=== PATIENT | female | born 1985 | race American Indian/Alaskan Native ===

== ENCOUNTER 2017-12-25 00:22 | Inpatient (IN) | payer OTHER ==
[2017-12-25 01:47] VITALS: BMI 29.5
--- NOTE | 2017-12-25 01:53 | OBADHP ---
Datetime: 12/25/2017 01:33 Admit Comment, IP Provider: 32 yo female with an IUP at 39.2 weeks and presented with a Hx of leaking fluid vaginally since 11:30 PM and continuously wetting her underwear but only ocassional contractions. Admits to adequate FM and denies VB or VD. PMHx and PSHx Negative NKDA Meds: PNV Social Hx: Negative x 3 A_P: Term with SROM and not in labor GBS unkinown NST reactive Hx of previous 10 yrs ago and one miscarriage Will admit for anticipated vaginal delivery Aill start on PCN G for GBS prophylaxis Will start on Pitocin for Augmentation of labor Hope for a vaginal delivery Undecided re an Epidural Pelvic Type - PN: Adequate Extremities - PN: Normal Abdomen - PN: Normal Back - PN: Normal Breast - PN: Not Done Lungs - PN: Normal Heart - PN: Normal Thyroid - PN: Normal Neurologic - PN: Normal HEENT - PN: Normal General - PN: Normal Presentation-Admit: Vertex FHR - Baseline A Provider: 140 Amniotic Fluid Color, Provider: Clear Membranes, Provider: Ruptured Contraction Comments Provider: 8 mins Gestation - Est Wks by US: 39.2 Pool Provider: Negative Nitrazine Provider: Positive IP Hx Assessment: Partial PNC records available Vital Signs Provider: Reviewed; Within Normal Limits IP Chief Complaint: Suspected ruptured membranes; evaluation NICHD Variability Prov Fetus A: Moderate 6-25bpm NICHD Accel Fetus A IP Provider: 10X10 FHR Category Provider Fetus A: Category I NICHD Decel Fetus A IP Provider: None Dilatation, Provider: 2 Effacement, Provider: 50 Station, Provider: -3 Genitourinary Exam: Normal DTRs - PN: Normal EGA AdmitDate IP: 39.2 IP Adm Impression: Term, intrauterine ; No Active Labor; Ruptured Membranes IP Admit Plan: Admit to unit; Initiate labor augmentation protocol
[2017-12-25] MEDS ORDERED: Penicillin G 5 Million Unit Vial IVPB ONE ×2 (01:54→02:50)
[2017-12-25] MEDS ORDERED: Lactated Ringer's 1,000 ML IV ONE (01:54)
[2017-12-25] MEDS ORDERED: Lactated Ringer's 1,000 ML IV SCH (02:00)
[2017-12-25] MEDS ORDERED: Oxytocin 30 UNIT 30 UNITS/500 ML BAG IV ONE ×2 (02:03→02:51)
[2017-12-25 02:34] LABS: BASO % 0.6 % (0.0-2.0); EOS # 0.1 K/uL (0.0-0.7); EOS % 0.9 % (0.0-4.0); HEMOGLOBIN 11.3 g/dL (11.0-16.0); LYMPH # 1.3 K/uL (1.0-4.3); LYMPH % 19.2 % (20.0-40.0); MEAN CELL VOLUME 84.3 fL (81.0-99.0); MEAN CORPUSCULAR HGB CONC 33.2 g/dL (33.0-37.0); MEAN PLATELET VOLUME 8.2 fL (7.2-11.7); MONO # 0.8 K/uL (0.0-0.8); MONO % 12.7 % (0.0-10.0); NEUT # 4.4 K/uL (1.8-7.0); NEUT % 66.6 % (50.0-75.0); RBC 4.03 Mil/uL (3.80-5.20); RED CELL DISTRIBUTION WIDTH 14.2 % (11.5-14.5); WHITE BLOOD COUNT 6.6 K/uL (4.8-10.8)
[2017-12-25 02:37] LABS: SQUAMOUS EPITHIAL 3 /hpf (0-5); URINE BILIRUBIN NEGATIVE (NEGATIVE); URINE BLOOD NEGATIVE (NEGATIVE); URINE CLARITY Clear (Clear); URINE COLOR Straw (YELLOW); URINE GLUCOSE (UA) NORMAL (Normal); URINE LEUKOCYTE ESTERASE NEG Leu/uL (Negative); URINE PROTEIN NEGATIVE (NEGATIVE); URINE UROBILINOGEN NORMAL mg/dL (0.2-1.0)
[2017-12-25 02:48] LABS: ALBUMIN 3.6 g/dL (3.5-5.0); ALT/SGPT 16 U/L (9-52); AST/SGOT 17 U/L (14-36); BLOOD UREA NITROGEN 10 mg/dL (7-17); CALCIUM 8.7 mg/dl (8.6-10.4); GFR NON-AFRICAN AMERICAN > 60
[2017-12-25 03:17] LABS: HEPATITIS B SURFACE AG Negative (NEGATIVE)
[2017-12-25] MEDS ORDERED: Fentanyl/Bupivacaine HCl 250 ML EPI ONE (06:37)
--- NOTE | 2017-12-25 07:34 | OBPN ---
Datetime: 12/25/2017 07:02 IP Progress Impression: Normal progression of labor IP Informed Consent Obtain: Vaginal Delivery IP Procedures: Sterile Vag Exam; Sterile Speculum Exam; Epidural Placement IP Progress Plan: Augmentation Membranes, Provider: Ruptured Contraction Comments Provider: Irregular FHR - Baseline A Provider: 150 Gestation - Est Wks by US: 39.2 Presentation-Admit: Vertex IP Progress Note Comment: Pt seen and examined C/O's of very painful contractions and requesting an Epidural VSS tracing reassuring + forebag noted and will attempt AROM after Epidural Pitocin at 6 mU/mins and irregular contractions Hope for a vaginal delivery NICHD Accel Fetus A IP Provider: 10X10 NICHD Variability Prov Fetus A: Moderate 6-25bpm Dilatation, Provider: 2-3 Effacement, Provider: 75 Station, Provider: -3 NICHD Decel Fetus A IP Provider: None Datetime: 12/25/2017 01:33 Pool Provider: Negative Nitrazine Provider: Positive Amniotic Fluid Color, Provider: Clear Vital Signs Provider: Reviewed; Within Normal Limits FHR Category Provider Fetus A: Category I
--- NOTE | 2017-12-25 08:40 | OBPN ---
Datetime: 12/25/2017 08:10 IP Progress Impression Other: Late decelerations IP Procedures: Intrauterine Pressure Catheter; Scalp Electrode; Sterile Vag Exam IP Progress Plan: Continue present management; Augmentation; Anticipate Vaginal Delivery Membranes, Provider: Ruptured Contraction Comments Provider: 3 minutes FHR - Baseline A Provider: 145 Gestation - Est Wks by US: 39w 2d Presentation-Admit: Vertex IP Progress Note Comment: FHR tracing noted for late decel x 3, [place] 60 bpm x 60 seconds with rapid recovery, (+) moderate variability. Lizabethn received in LDR#1, left lateral position; IVF infusing. Pt_itocin at 10 MUnits Cervical eam: as above. IUPC and ISE placed and inserted without difficulty. Tracing monitored - baselin resumed 150 bpm; no recurrence of decelerations noted Assessment: 32 y.o. P1011, 39w 3d, SROM x 9 hours on pitocin. GBS unknown; on penicillin. FHR trac ing has improved. Pitocin maintained at 10 MUnits. D/W patient and FOB will continue to monitor clos tiburcio. If late deceleration recur, adbominal delivery will be entertained. Patient and FOB expressed an understanding. Patient is clincially stble. Plan: 1) Continue present management 20 Anticipate vaginal delviery Vital Signs Provider: Reviewed; Within Normal Limits NICHD Accel Fetus A IP Provider: 15X15 FHR Category Provider Fetus A: Category III NICHD Variability Prov Fetus A: Moderate 6-25bpm Dilatation, Provider: 4 Effacement, Provider: 60 Station, Provider: -3 NICHD Decel Fetus A IP Provider: Late
--- NOTE | 2017-12-25 12:17 | OBPN ---
Datetime: 12/25/2017 12:07 IP Progress Impression: Normal progression of labor IP Procedures: Sterile Vag Exam IP Progress Plan: Continue present management; Anticipate Vaginal Delivery Membranes, Provider: Ruptured Contraction Comments Provider: 2 minutes FHR - Baseline A Provider: 150 Gestation - Est Wks by US: 39w 2d Presentation-Admit: Vertex IP Progress Note Comment: Patietn comfortable Cervical exam: as above. Pitocn at 5 MUnits Assessment: 32 y.o. P1011, 39w 2d, SROM on pitocin, GBS (+) on penicilin; nearing end of Stage 1 o f . Category 1 tracing. Clinically stable. Plan: 1) Continue present management 2) Anticipate vaginal delivery Vital Signs Provider: Reviewed; Within Normal Limits NICHD Accel Fetus A IP Provider: 15X15 FHR Category Provider Fetus A: Category I NICHD Variability Prov Fetus A: Moderate 6-25bpm Dilatation, Provider: 10 Effacement, Provider: 100 Station, Provider: 1 NICHD Decel Fetus A IP Provider: Early
[2017-12-25] MEDS ORDERED: Lidocaine 2% MPF (5 ml) Inj ONE (13:33)
--- NOTE | 2017-12-25 17:21 | OBDS ---
DELIVERY PERSONNEL Nurse Inventory Accountant Certified: N/A Delivery Doctor: Ninfa Dunn MD Anesthesiologist: Dr. Grover Chemical Manager: N/A Resident: NElsi MATERNAL INFORMATION Delivery Anesthesia: Epidural Provider Comments: Patient fully dilated 1350 hours; encouraged to push live male , ROP, tight nuchal cord x 1 - doubly clamped and cut on perineum. Rest of bod y delivered without incident. placed on mother's abdomen. Spontaneous delivery of placenta - grossly intact; 3 vessel cord. Uterine exploration performed; uterus contracted and firm. Straight catheterization performed: 300 mL urine Cervix, vagina, perineum inspected - no lacerations. Hemostasis assured. Mother and bonding, both in stable condition EBL 200 mL Weight 7lb 5oz 's 9/9 LABOR SUMMARY EDC: 12/30/2017 00:00 No. Babies in Womb: 1 Attempted: No Labor Anesthesia: None LABOR INFORMATION Reason for Induction: Not Applicable Reason for Induction Other: N/A Onset of Labor: 12/24/2017 00:30 Complete Dilatation: 12/25/2017 13:50 Other Ripening Agents: N/A Oxytocin: Augmentation Group B Beta Strep: Done, Result Unknown Antibiotics # of Doses: 3 Antibiotics Time of Last Dose: 12/25/2017 @ 14:41 Steroids Given: None Reason Steroids Not Administered: Not Applicable Other Reason Not Administered: N/A MEMBRANES Membranes Rupture Method: Spontaneous Rupture of Membranes: 12/24/2017 23:30 Length of Rupture (hrs): 17.32 Amniotic Fluid Color: Clear Amniotic Fluid Amount: Moderate Amniotic Fluid Odor: Normal STAGES OF LABOR Stage 1 hrs: 37 Stage 1 min: 20 Stage 2 hrs: 2 Stage 2 min: 59 Stage 3 hrs: 0 Stage 3 min: 9 Total Time in Labor hrs: 40 Total Time in Labor min: 28 VAGINAL DELIVERY Initial Vag Sponge Count: 10 Initial Vag Sharps Count: 0 BABY A INFORMATION Infant Delivery Date/Time: 12/25/2017 16:49 Method of Delivery: Vaginal Born in Route : No : N/A Forceps: N/A Vacuum Extraction: N/A Shoulder Dystocia : No SHOULDER DYSTOCIA BABY A Delivery Date/Time: 12/25/2017 16:49 PRESENTATION/POSITION BABY A Presentation: Cephalic Cephalic Presentation: Vertex Vertex Position: Right Occipital Posterior Breech Presentation: N/A PLACENTA INFORMATION BABY A Placenta Delivery Time : 12/25/2017 16:58 Placenta Method of Delivery: Spontaneous Placenta Status: Delivered SCORES BABY A Heart Rate 1 min: >100 bpm Resp Effort 1 min: Good Cry Reflex Irritability 1 min: Cough or Sneeze or Pulls Away Muscle Tone 1 min: Active Motion Color 1 min: Body Point Isabel, Extremities Blue Resuscitation Effort 1 min: Tactile Stimulation SCORE 1 MIN: 9 Heart Rate 5 min: >100 bpm Resp Effort 5 min: Good Cry Reflex Irritability 5 min: Cough or Sneeze or Pulls Away Muscle Tone 5 min: Active Motion Color 5 min: Body Point Isabel, Extremities Blue Resuscitation Effort 5 min: N/A SCORE 5 MIN: 9 INFANT INFORMATION BABY A Gestational Age at Delivery: 39.2 Gestational Status: Term Outcome : Liveborn Condition : Stable Infant Sex: Male IDENTIFICATION/MEDS BABY A ID Band Number: [id number] ID Band Location: Left Leg; Left Arm Sensor Applied: Yes Sensor Number: [id number] Sensor Location : Cord Clamp WEIGHT/LENGTH BABY A Birthweight (gms): 3315 Infant Weight (lb): 7 Weight (oz): 5 Infant Length Inches: 19.75 Length cms: 50.2 CORD INFORMATION BABY A No. Cord Vessels: 3 Nuchal Cord : Around Neck x1, Loose Nuchal Cord Other: N/A True Knot: N/A Cord Blood Taken: Yes Banking/Donate Info: N/A Suction: Mouth; Nose
[2017-12-25] MEDS ORDERED: Oxycodone/Acetaminophen 5/325 mg Tab PO PRN (17:29)
[2017-12-25] MEDS ORDERED: Benzocaine/Menthol 20%-0.5% Topical Spray (60 ml) TOP PRN (17:29)
[2017-12-26 01:39] VITALS: O2SAT 99
[2017-12-26 08:44] LABS: BASO % 0.3 % (0.0-2.0); EOS # 0.1 K/uL (0.0-0.7); EOS % 0.6 % (0.0-4.0); HEMOGLOBIN 9.9 g/dL (11.0-16.0); LYMPH # 1.5 K/uL (1.0-4.3); LYMPH % 11.6 % (20.0-40.0); MEAN CELL VOLUME 84.1 fL (81.0-99.0); MEAN CORPUSCULAR HEMOGLOBIN 27.2 pg (27.0-31.0); MEAN CORPUSCULAR HGB CONC 32.3 g/dL (33.0-37.0); MEAN PLATELET VOLUME 8.2 fL (7.2-11.7); MONO % 7.9 % (0.0-10.0); NEUT # 10.5 K/uL (1.8-7.0); NEUT % 79.6 % (50.0-75.0); RBC 3.64 Mil/uL (3.80-5.20); RED CELL DISTRIBUTION WIDTH 14.2 % (11.5-14.5)
[2017-12-26 08:45] LABS: WHITE BLOOD COUNT 13.2 K/uL (4.8-10.8)
[2017-12-26 09:15] VITALS: RESP 18
[2017-12-26] MEDS: Multiple Vitamins Tab PO SCH (09:55)
--- NOTE | 2017-12-26 13:51 | OBPPN ---
Datetime: 12/26/2017 07:10 PP Pain Prov: Within normal limits PP Nausea Prov: Denies PP Flatus Prov: Yes PP BM Prov: No PP Heart Prov: Normal PP Lungs Prov: Normal PP Abdomen/Uterus Prov: Normal PP Lochia Prov: Normal PP Vulva/Perineum Prov: Normal PP CVA Tenderness Prov: Normal PP Extremities Prov: Normal PP C/S Incision Prov: Not Applicable PP Progress Prov: Normal PP Comments Phys Exam Prov: Gen: patient in bed in NAD Heart: S1, S2, RRR Chest: CTA b/l Abd: soft, +BS, appropriate tender to palpate Fundal height at the level of umbilicus Ext: peripheral pulses palpable. no edema, no cyanosis PP Impression Prov: Normal progression PP Plan Prov: Continue present management; consult PP Progress Note Prov: Patient seen and examined at bedside. PPD # 1 S/P Tolerating her regular diet, voiding. Ambulating in her room. Denied fever, chills, chest pain, SO B, nausea, vomiting. Vitals are stable. Baby is brest fed and is doing well. Patient wants circumcisi on for her baby. A/P: 32 y/o S/P Normal PP progression Stable and Satisfactory condition and Recovery Pain management, encourage ambulation in Hallways and po water intake Anticipate discharge home tomorrow Case reviewed and discussed with attending Dr Aldo Piña, DO, PGY1 IP PP Procedures: None Vital Signs Provider PP: Reviewed; Within Normal Limits
[2017-12-27 08:02] VITALS: BP 99/65; PULSE 67; TEMP 98.6
--- NOTE | 2017-12-27 08:08 | OBPPN ---
Datetime: 12/27/2017 08:05 PP Pain Prov: Within normal limits PP Nausea Prov: Denies PP Flatus Prov: Yes PP Breasts Prov: Not Done PP Heart Prov: Not Done PP Lungs Prov: Not Done PP Abdomen/Uterus Prov: Normal PP Lochia Prov: Normal PP Vulva/Perineum Prov: Not Done PP CVA Tenderness Prov: Not Done PP Extremities Prov: Not Done PP C/S Incision Prov: Not Applicable PP Progress Prov: Normal PP Comments Phys Exam Prov: patient awake and alert, actively breast feeding, abdomen soft NTND with firm fundus, no calf pain PP Impression Prov: Normal progression PP Plan Prov: Continue present management; Discharge PP Progress Note Prov: patient seen and examined multigravida post day 2 vitals and labs within normal limits breast feeding patient will schedule post exam considering contraception options encourage OOB, ambulation, use of or iron tablets IP PP Procedures: None Vital Signs Provider PP: Reviewed; Within Normal Limits Datetime: 12/27/2017 07:00 PP BM Prov: Yes
--- NOTE | 2017-12-27 08:10 | OBDCSUM ---
Datetime: 12/27/2017 08:08 Discharged to, Provider: Home Follow up at, Provider: clinic Disch Instr Activity: Normal activity Disch Instr Diet: Regular Discharge Instructions, Provider: Routine instructions given Discharge Diagnosis, Provider: Term Delivered Discharge Time: 12/27/2017 08:08 Follow up in weeks, Provider: 4-6 weeks Disch Referrals: None Contraception discussed, Prov: Yes Disch Activity Restrictions: No sexual activity; Nothing in vagina - [place], tampons, douche Contraception after Delivery: Undecided
[2017-12-27] MEDS: Multiple Vitamins Tab PO SCH (09:25)
== END 2017-12-27 16:10 | disposition home or self-care (01) | DRG 807 ==
LOC: C.EROB 00:22 → C.4LDOR 01:45 → C.4D 02:45 → C.4M 18:25
PROVIDERS: ADMIT Obstetrics & Gynecology; ATTEND Obstetrics & Gynecology
PROC: 10E0XZZ Delivery of Products of Conception, External Approach (ICD-10-PCS; principal; 2017-12-25)
DX: O69.1XX0 Labor and delivery complicated by cord around neck, with compression, not applicable or unspecified (principal); O99.824 Streptococcus B carrier state complicating childbirth; Z37.0 Single live birth; Z3A.39 39 weeks gestation of pregnancy